=== PATIENT | female | born 1960 | race Caucasian/White ===

== ENCOUNTER 2016-06-15 21:28 | Emergency (ER) | payer MEDICAID ==
[~2016-06-15] VITALS: Ht 160 cm; Wt 79.0 kg
[~2016-06-15 21:28] MED LIST: CARB15DR48 RIGHT EAR; IBUP-1542 PO; MECL12.574 PO; MECL25TA2 PO; NPH10OT RIGHT EAR; ONDA4TAB14 PO; PARO20TA58 PO
[2016-06-15 21:36] VITALS: Ht 160 cm; Wt 79.0 kg
[2016-06-15] MEDS ORDERED: NPH10OT BOTH EARS (22:07)
[2016-06-15] MEDS ORDERED: IBUP-1542 PO (22:07)
[2016-06-15] MEDS ORDERED: AMO500 PO (22:07)
[2016-06-15] MEDS ORDERED: AMOX1TAB10 PO (22:11)
--- NOTE | 2016-06-15 22:45 | ERD ---
ER Documentation Chief Complaint Date/Time DATE: 06/15/16 TIME: 22:41 Chief Complaint bilateral earache, wallis and sore throat x3 days. HPI This is a 56-year-old female presents to the ER with a sore throat, bilateral earache, headache for the last 3 days. Patient denies any fevers or chills. She denies any discharge from her ears. She denies any hearing loss or tinnitus. She denies any dizziness, loss of consciousness. She denies nausea vomiting or diarrhea. She denies chest pain or shortness of breath. ROS 12 point review of systems was done, all negative except per HPI. Medications Home Meds Active Scripts Amoxicillin/Potassium Clav (Amox-Clav 875-125 mg Tablet) 875-125 mg Tab, 1 TAB PO BID for 7 Days, #14 TAB Prov:ERNO SOLOMON 06/15/16 Ibuprofen* (Motrin*) 600 Mg Tab, 600 MG PO Q6, #30 TAB Prov:RENO SOLOMON 06/15/16 Neomycin/Polymyxin/Hydrocort* (Cortisporin* Otic) 10 Ml Susp, 4 DROP BOTH EARS QID for 7 Days, EA Prov:RENO SOLOMON 06/15/16 Ondansetron (Ondansetron Odt) 4 Mg Tab.rapdis, 4 MG PO Q6H Y for NAUSEA AND/OR VOMITING, #30 TAB Prov:KARMA NAJERA MD 05/31/16 Meclizine Hcl* (Antivert*) 12.5 Mg Tab, 25 MG PO Q6H Y for DIZZINESS, #20 TAB Prov:KARMA NAJERA MD 05/31/16 Ibuprofen* (Motrin*) 600 Mg Tab, 600 MG PO Q6, #20 TAB Prov:ADRIANO FLOR NP 04/11/16 Carbamide Peroxide* (Debrox*) 6.5% - 15 Ml Drops, 10 DROP RIGHT EAR BID for 4 Days, BOTTLE Prov:JARED ALEXANDER NP 09/25/15 Neomycin/Polymyxin/Hydrocort* (Cortisporin* Otic) 10 Ml Susp, 4 DROP RIGHT EAR QID for 7 Days, EA Prov:JARED ALEXANDER NP 09/25/15 Ibuprofen* (Motrin*) 600 Mg Tab, 600 MG PO Q6H Y for PAIN AND OR ELEVATED TEMP, #30 TAB Prov:CATHERINEJARED X. RFID ENGINEER 09/25/15 Neomycin/Polymyxin/Hydrocort* (Cortisporin* Otic) 10 Ml Susp, 4 DROP RIGHT EAR QID for 7 Days, EA Prov:NOAHSOWMYA RFID ENGINEER 09/09/15 Meclizine Hcl* (Antivert*) 25 Mg Tablet, 25 MG PO Q6H Y for dizziness, #20 TAB Prov:KARMA NAJERA MD 08/06/15 Reported Medications Paroxetine Hcl* (Paxil*) 20 Mg Tablet, 20 MG PO DAILY, TAB 06/21/14 Allergies Allergies: Coded Allergies: No Known Allergies (Verified Allergy, Mild, 08/06/15) PMhx/Soc History of Surgery: No Anesthesia Reaction: No Hx Neurological Disorder: No Hx Respiratory Disorders: No Hx Cardiac Disorders: No Hx Psychiatric Problems: No Hx Miscellaneous Medical Probl: No Hx Alcohol Use: No Hx Substance Use: No Hx Tobacco Use: No Physical Exam Vitals Vital Signs Date Time Temp Pulse Resp B/P Pulse Ox O2 Delivery O2 Flow Rate FiO2 06/15/16 21:36 98.8 78 20 161/85 98 Physical Exam GENERAL: The patient is well-developed, well-nourished, in no acute distress. NECK: Cervical spine is non tender with no step off. Supple, no nuchal rigidity HEENT: Atraumatic. Pupils equal, round and reactive to light. Extraocular muscles are grossly intact. Conjunctivae pink, no discharge. bilateral erythematous ear canals with dc in ear canal. Tonsilar erythema with no exudates or uvular deviation. Clear rhinorrhea. RESPIRATORY: Clear to auscultation bilaterally. There are no rales, wheezes or rhonchi. HEART: Regular rate and rhythm. No murmurs, clicks, rubs or gallops. NEUROLOGIC: Alert and oriented. SKIN: There is no rash. The skin is warm and dry. Procedures/MDM Differential diagnosis includes but is not limited to; Viral URI, allergic rhinitis, bronchitis, pertussis,pneumonia. Patient does have external otitis. Clinical suspicion for pneumonia is low as patient appears well, is not hypoxic or in any respiratory distress. Additionally, patients physical examination is benign. Plan was discussed with patient they understand and agree. Patient needs to follow up with PCP in 1-2 days or return to ER sooner if symptoms worsen. Departure Diagnosis: Primary Impression: Otitis externa Condition: Stable Patient Instructions: External Ear Infection (Adult) Additional Instructions: Llame al doctor MAANA y jesi rolando PARK PARA DENTRO DE 1-2 COTTON.Dgale a la secretaria que nosotros le instruimos hacer esta park.Avise o llame si daniel condicin se empeora antes de la park. Regresa aqui si peor o no mejor. RENO SOLOMON Jun 15, 2016 22:44
== END 2016-06-15 22:08 | disposition home or self-care (01) ==
LOC: E/R 21:28
DX: H60.93 Unspecified otitis externa, bilateral (principal)
CPT/HCPCS: 99283

== ENCOUNTER 2016-12-09 06:17 | Emergency (ER) | payer SELFPAY ==
[~2016-12-09] VITALS: Ht 157.5 cm; Wt 74.5 kg
[~2016-12-09 06:17] MED LIST changes: +AMOX1TAB10 PO; +NPH10OT BOTH EARS
[2016-12-09 06:21] VITALS: Ht 157.5 cm; Wt 74.5 kg
[2016-12-09] MEDS ORDERED: KETOROLAC 30 MG INJ IM STA (06:49)
[2016-12-09 07:00] LABS: URINE BLOOD (Dip) POC Trace-intact (NEGATIVE)
--- NOTE | 2016-12-09 07:14 | ERD ---
ER Documentation Chief Complaint Date/Time DATE: 12/09/16 TIME: 07:12 Chief Complaint lower back pain; numbness on right leg x 8 days HPI This is a 56-year-old female who presents to the emergency department today complaining of right-sided back pain and numbness into her right leg. Denies any trauma, denies any fevers or chills or dysuria. ROS All systems reviewed and are negative except as per history of present illness. Medications Home Meds Active Scripts Naproxen* (Naprosyn*) 500 Mg Tablet, 500 MG PO BID Y for PAIN AND/OR INFLAMMATION, #30 TAB Prov:NESSA ARZATE PA-C 12/09/16 Tramadol HCl (Tramadol HCl) 50 Mg Tablet, 50 MG PO Q4 Y for PAIN, #20 TAB Prov:NESSA ARZATE PA-C 12/09/16 Amoxicillin/Potassium Clav (Amox-Clav 875-125 mg Tablet) 875-125 mg Tab, 1 TAB PO BID for 7 Days, #14 TAB Prov:RENO SOLOMON 06/15/16 Ibuprofen* (Motrin*) 600 Mg Tab, 600 MG PO Q6, #30 TAB Prov:RENO SOLOMON 06/15/16 Neomycin/Polymyxin/Hydrocort* (Cortisporin* Otic) 10 Ml Susp, 4 DROP BOTH EARS QID for 7 Days, EA Prov:RENO SOLOMON 06/15/16 Ondansetron (Ondansetron Odt) 4 Mg Tab.rapdis, 4 MG PO Q6H Y for NAUSEA AND/OR VOMITING, #30 TAB Prov:KARMA NAJERA MD 05/31/16 Meclizine Hcl* (Antivert*) 12.5 Mg Tab, 25 MG PO Q6H Y for DIZZINESS, #20 TAB Prov:KARMA NAJERA MD 05/31/16 Ibuprofen* (Motrin*) 600 Mg Tab, 600 MG PO Q6, #20 TAB Prov:ADRIANO FLOR NP 04/11/16 Carbamide Peroxide* (Debrox*) 6.5% - 15 Ml Drops, 10 DROP RIGHT EAR BID for 4 Days, BOTTLE Prov:JARED ALEXANDER NP 09/25/15 Neomycin/Polymyxin/Hydrocort* (Cortisporin* Otic) 10 Ml Susp, 4 DROP RIGHT EAR QID for 7 Days, EA Prov:CATHERINEJARED X. HOUSING COORDINATOR 09/25/15 Ibuprofen* (Motrin*) 600 Mg Tab, 600 MG PO Q6H Y for PAIN AND OR ELEVATED TEMP, #30 TAB Prov:JARED ALEXANDER Tavon. HOUSING COORDINATOR 09/25/15 Neomycin/Polymyxin/Hydrocort* (Cortisporin* Otic) 10 Ml Susp, 4 DROP RIGHT EAR QID for 7 Days, EA Prov:SOWMYA ZAMORA HOUSING COORDINATOR 09/09/15 Meclizine Hcl* (Antivert*) 25 Mg Tablet, 25 MG PO Q6H Y for dizziness, #20 TAB Prov:KARMA NAJERA MD 08/06/15 Reported Medications Paroxetine Hcl* (Paxil*) 20 Mg Tablet, 20 MG PO DAILY, TAB 06/21/14 Allergies Allergies: Coded Allergies: No Known Allergies (Verified Allergy, Mild, 08/06/15) PMhx/Soc History of Surgery: No Anesthesia Reaction: No Hx Neurological Disorder: No Hx Respiratory Disorders: No Hx Cardiac Disorders: No Hx Psychiatric Problems: No Hx Miscellaneous Medical Probl: No Hx Alcohol Use: No Hx Substance Use: No Hx Tobacco Use: No Smoking Status: Never smoker Physical Exam Vitals Vital Signs Date Time Temp Pulse Resp B/P Pulse Ox O2 Delivery O2 Flow Rate FiO2 12/09/16 06:21 98.5 86 20 134/75 99 Physical Exam Const: No acute distress Head: Atraumatic Eyes: Normal Conjunctiva ENT: Normal External Ears, Nose and Mouth. Neck: Full range of motion..~ No meningismus. Resp: Clear to auscultation bilaterally Cardio: Regular rate and rhythm, no murmurs Skin: No petechiae or rashes Back: Mild midline tenderness with right-sided paraspinal tenderness. Full active range of motion. Pulses 2+. Distal neurovascularly intact. Negative straight leg raise. Strength 5 out of 5. Ext: No cyanosis, or edema Neur: Awake and alert Psych: Normal Mood and Affect Results 24 hrs Laboratory Tests Test 12/09/16 07:04 Bedside Urine pH (LAB) 5.5 Bedside Urine Protein (LAB) Trace Bedside Urine Glucose (UA) 0.50% Bedside Urine Ketones (LAB) Trace Bedside Urine Blood Trace-intact Bedside Urine Nitrite (LAB) Negative Bedside Urine Leukocyte Esterase (L Negative Current Medications Medications (Trade) Dose Ordered Sig/Eli Route PRN Reason Start Time Stop Time Status Last Admin Dose Admin Ketorolac Tromethamine (Toradol) 30 mg ONCE STAT IM 12/09/16 06:49 12/09/16 06:51 DC 12/09/16 07:04 DIAGNOSTIC IMAGING REPORT Patient: THANIA ROBBINS : 1960 Age: 56 Sex: F MR #: [id number] DOS: 12/09/16 0000 Ordering MD: NESSA ARZATE PA-C Location: [facility] Room/Bed: PROCEDURE: XR Lumbar Spine. CLINICAL INDICATION: Low back pain with radicular symptoms. TECHNIQUE: Three views of the lumbar spine are available for review COMPARISON: None available FINDINGS: There is no acute fracture or static subluxation. There is moderate degenerative spondylosis at L5-S1 with intervertebral disk height loss and disk osteophyte formation. There is otherwise preserved intervertebral disk height. The normal lumbar lordosis is preserved and the alignment is normal. The posterior elements are normal in appearance. IMPRESSION: 1. Negative for acute fracture static subluxation. 2. moderate degenerative spondylosis at L5-S1. RPTAT: GG .Luiz Gerber MD, MD Date Time Electronically viewed and signed by .Luiz Gerber MD, MD on 12/09/2016 08:27 .P/ CC: NESSA ARZATE PA-C Procedures/MDM This is a 56-year-old female who presents to the emergency department today complaining of back pain for the past 8 days and right-sided paresthesia. Given this I did elect to obtain images as well as a UA. UA is negative for infection. Per the radiology report images of the lumbar spine show no acute fracture or dislocation. There is moderate degenerative spondylosis at L5 and S1 This is likely the source of the patient's pain. Low suspicion for acute fracture or dislocation. Patient is afebrile and otherwise well-appearing. They have no loss of bowel or bladder control. Low suspicion for cauda equina or abscess. Patient was given Toradol here in the emergency department and pain improved. Patient will be given a prescription for short course of tramadol, Naprosyn. At this time the patient is stable for discharge and outpatient management. Patient should follow up with their PCP in the next 1-2 days. They may return to the emergency department sooner for any persistent or worsening of symptoms. Patient understood and agreed with the plan. Departure Diagnosis: Primary Impression: Back pain Back pain location: low back pain Chronicity: acute Back pain laterality: right Sciatica presence: unspecified whether sciatica present Qualified Code : M54.5 - Acute right-sided low back pain, with sciatica presence unspecified Condition: Fair NESSA ARZATE PA-C Dec 09, 2016 07:14
--- NOTE | 2016-12-09 08:27 | RADRPT ---
PROCEDURE: XR Lumbar Spine. CLINICAL INDICATION: Low back pain with radicular symptoms. TECHNIQUE: Three views of the lumbar spine are available for review COMPARISON: None available FINDINGS: There is no acute fracture or static subluxation. There is moderate degenerative spondylosis at L5-S 1 with intervertebral disk height loss and disk osteophyte formation. There is otherwise preserved intervertebral disk height. The normal lumbar lordosis is preserved and the alignment is normal. The posterior elements are normal in appearance. IMPRESSION: 1. Negative for acute fracture static subluxation. 2. moderate degenerative spondylosis at L5-S1. RPTAT: GG .Luiz Gerber MD, Date Time Electronically viewed and signed by .Luiz Gerber MD, MD on 12/09/2016 08:27 .P/
[2016-12-09] MEDS ORDERED: TRAM50TA2 PO (08:32)
[2016-12-09] MEDS ORDERED: NAPR-260 PO (08:32)
== END 2016-12-09 09:21 | disposition home or self-care (01) ==
LOC: FTE 06:17
DX: M54.5 Low back pain (principal)
CPT/HCPCS: 72100; 81003; J1885; 96372

== ENCOUNTER 2019-01-24 11:49 | Emergency (ER) | payer MEDICAID ==
[~2019-01-24] VITALS: Ht 160 cm; Wt 74.0 kg
[~2019-01-24 11:49] MED LIST changes: -CARB15DR48 RIGHT EAR; +CARB15DR50 RIGHT EAR; +LORA-441 PO; +METF-849 PO; +NAPR-985 PO; +PARO-2 PO; -PARO20TA58 PO; +PARO30TA48 PO; +PARO40TA63 PO; +TRAM50TA2 PO
[2019-01-24 11:58] VITALS: Ht 160 cm; Wt 74.0 kg
[2019-01-24] MEDS ORDERED: LACTATED RINGER'S 1,000 ML IV STA (11:58)
[2019-01-24] MEDS ORDERED: SOD CHLORIDE 0.9% 1,000 ML IV STA (11:58)
[2019-01-24] MEDS ORDERED: FAMOTIDINE 20 MG TAB PO ONE (12:30)
[2019-01-24] MEDS ORDERED: KETOROLAC 30 MG INJ IV STA (13:24)
--- NOTE | 2019-01-24 13:46 | ERD ---
ER Documentation Chief Complaint Chief Complaint pt is bib RA from clinic with c/o elevated BS and pain all over HPI 59-year-old female brought in by ambulance from clinic due to elevated blood sugar and several months of generalized abdominal pain, back pain, and bilateral leg pain. Patient states the pain is aching, constant, with no alleviating or exacerbating factors. She has been off of diabetes medications for quite some time. She was noted to be hyperglycemic today with ketones in her urine, so she was sent for evaluation. She has no new pain or complaints otherwise. ROS All systems reviewed and are negative except as per history of present illness. Medications Home Meds Active Scripts Metformin* (Glucophage*) 500 Mg Tab, 500 MG PO BID, #60 TAB Prov:JEM KEY MD 01/24/19 Reported Medications Paroxetine Hcl* (Paxil*) 20 Mg Tablet, 40 MG PO HS, TAB 01/24/19 Discontinued Reported Medications Paroxetine Hcl* (Paxil*) 20 Mg Tablet, 20 MG PO DAILY, TAB 06/21/14 Discontinued Scripts Naproxen* (Naprosyn*) 500 Mg Tablet, 500 MG PO BID PRN for PAIN AND/OR INFLAMMATION, #30 TAB Prov:NESSA ARZATEC 12/09/16 Tramadol HCl (Tramadol HCl) 50 Mg Tablet, 50 MG PO Q4 PRN for PAIN, #20 TAB Prov:NESSA ARZATE-C 12/09/16 Amoxicillin/Potassium Clav (Amox-Clav 875-125 mg Tablet) 875-125 mg Tab, 1 TAB PO BID for 7 Days, #14 TAB Prov:RENO SOLOMON 06/15/16 Ibuprofen* (Motrin*) 600 Mg Tab, 600 MG PO Q6, #30 TAB Prov:RENO SOLOMON 06/15/16 Neomycin/Polymyxin/Hydrocort* (Cortisporin* Otic) 10 Ml Susp, 4 DROP BOTH EARS QID for 7 Days, EA Prov:RENO SOLOMON 06/15/16 Ondansetron (Ondansetron Odt) 4 Mg Tab.rapdis, 4 MG PO Q6H PRN for NAUSEA AND/OR VOMITING, #30 TAB Prov:KARMA NAJERA MD 05/31/16 Meclizine Hcl* (Antivert*) 12.5 Mg Tab, 25 MG PO Q6H PRN for DIZZINESS, #20 TAB Prov:KARMA NAJERA MD 05/31/16 Ibuprofen* (Motrin*) 600 Mg Tab, 600 MG PO Q6, #20 TAB Prov:BASIAADRIANO AjAlida CONSTRUCTION SPECIALIST 04/11/16 Carbamide Peroxide* (Debrox*) 6.5% - 15 Ml Drops, 10 DROP RIGHT EAR BID for 4 Days, BOTTLE Prov:JARED ALEXNADER CONSTRUCTION SPECIALIST 09/25/15 Neomycin/Polymyxin/Hydrocort* (Cortisporin* Otic) 10 Ml Susp, 4 DROP RIGHT EAR QID for 7 Days, EA Prov:JARED ALEXANDER CONSTRUCTION SPECIALIST 09/25/15 Ibuprofen* (Motrin*) 600 Mg Tab, 600 MG PO Q6H PRN for PAIN AND OR ELEVATED TEMP, #30 TAB Prov:JARED ALEXANDER CONSTRUCTION SPECIALIST 09/25/15 Neomycin/Polymyxin/Hydrocort* (Cortisporin* Otic) 10 Ml Susp, 4 DROP RIGHT EAR QID for 7 Days, EA Prov:SOWMYA ZAMORA CONSTRUCTION SPECIALIST 09/09/15 Meclizine Hcl* (Antivert*) 25 Mg Tablet, 25 MG PO Q6H PRN for dizziness, #20 TAB Prov:KARMA NAJERA MD 08/06/15 Allergies Allergies: Coded Allergies: No Known Allergies (Verified Allergy, Mild, 01/24/19) PMhx/Soc Medical and Surgical Hx: pt denies Surgical Hx History of Surgery: No Anesthesia Reaction: No Hx Neurological Disorder: No Hx Respiratory Disorders: No Hx Cardiac Disorders: No Hx Psychiatric Problems: No Hx Miscellaneous Medical Probl: Yes (Diabetes, untreated) Hx Alcohol Use: No Hx Substance Use: No Hx Tobacco Use: No Smoking Status: Never smoker FmHx Mother had history of GI cancer Physical Exam Vitals Vital Signs Date Temp Pulse Resp B/P (MAP) Pulse Ox O2 O2 Flow FiO2 Time Delivery Rate 01/24/19 98.7 72 16 121/74 98 Room Air 15:05 (90) 01/24/19 85 16 129/73 Room Air 13:35 (91) 01/24/19 98.1 78 16 142/94 98 11:58 (110) Physical Exam Const: No acute distress Head: Atraumatic Eyes: Normal Conjunctiva ENT: Normal External Ears, Nose and Mouth. Neck: Full range of motion. No meningismus. Resp: Clear to auscultation bilaterally Cardio: Regular rate and rhythm, no murmurs Abd: Soft, non tender, non distended. Normal bowel sounds Skin: No petechiae or rashes Back: No midline or flank tenderness Ext: No cyanosis, or edema Neur: Awake and alert, oriented x3, cranial nerves intact, strength and sensations intact in all 4 extremities. Psych: Normal Mood and Affect Result Diagram: 01/24/19 1225 01/24/19 1225 Results 24 hrs Laboratory Tests Test 01/24/19 12:11 01/24/19 12:25 01/24/19 13:28 Bedside Glucose 274 mg/dL White Blood Count 7.2 10^3/ul Red Blood Count 4.21 10^6/ul Hemoglobin 13.2 g/dl Hematocrit 38.8 % Mean Corpuscular Volume 92.2 fl Mean Corpuscular Hemoglobin 31.4 pg Mean Corpuscular 34.0 g/dl Hemoglobin Concent Red Cell Distribution Width 12.2 % Platelet Count 308 10^3/UL Mean Platelet Volume 10.8 fl Immature Granulocytes % 0.300 % Neutrophils % 58.1 % Lymphocytes % 34.0 % Monocytes % 6.6 % Eosinophils % 0.3 % Basophils % 0.7 % Nucleated Red Blood Cells % 0.0 /100WBC Immature Granulocytes # 0.020 10^3/ul Neutrophils # 4.2 10^3/ul Lymphocytes # 2.4 10^3/ul Monocytes # 0.5 10^3/ul Eosinophils # 0.0 10^3/ul Basophils # 0.1 10^3/ul Nucleated Red Blood Cells # 0.0 10^3/ul Sodium Level 136 mmol/L Potassium Level 4.1 mmol/L Chloride Level 100 mmol/L Carbon Dioxide Level 26 mmol/L Anion Gap 10 Blood Urea Nitrogen 12 mg/dl Creatinine 0.41 mg/dl Est Glomerular Filtrat > 60 mL/min Rate mL/min Glucose Level 288 mg/dl Calcium Level 8.9 mg/dl Total Bilirubin 0.7 mg/dl Direct Bilirubin 0.00 mg/dl Indirect Bilirubin 0.7 mg/dl Aspartate Amino 28 IU/L Transf (AST/SGOT) Alanine 40 IU/L Aminotransferase (ALT/SGPT) Alkaline Phosphatase 149 IU/L Total Protein 8.0 g/dl Albumin 4.5 g/dl Lipase 57 U/L Urine Color YELLOW Urine Clarity CLEAR Urine pH 6.0 Urine Specific [place] 1.038 Urine Ketones 1+ mg/dL Urine Nitrite NEGATIVE mg/dL Urine Bilirubin NEGATIVE mg/dL Urine Urobilinogen NEGATIVE mg/dL Urine Leukocyte Esterase NEGATIVE Riana/ul Urine Microscopic RBC 1 /HPF Urine Microscopic WBC 1 /HPF Urine Squamous Epithelial Cells FEW /HPF Urine Hemoglobin NEGATIVE mg/dL Urine Glucose 3+ mg/dL Urine Total Protein 1+ mg/dl Urine Test NEGATIVE Current Medications Medications Dose Sig/Eli Start Time Status Last (Trade) Ordered Route PRN Stop Time Admin Dose Reason Admin Sodium 1,000 ml @ Q1H STAT 01/24/19 DC 01/24/19 Chloride 1,000 mls/hr IV 11:58 12:25 01/24/19 12:57 Lactated 1,000 ml @ Q1H STAT 01/24/19 DC 01/24/19 Ringer's 1,000 mls/hr IV 11:58 12:37 01/24/19 12:57 Famotidine 20 mg ONCE ONCE 01/24/19 DC 01/24/19 (Pepcid) PO 12:30 12:37 01/24/19 12:31 Ketorolac 30 mg ONCE STAT 01/24/19 DC 01/24/19 Tromethamine IV 13:24 13:32 (Toradol) 01/24/19 13:25 Procedures/MDM EMERGENT LABS AND DIAGNOSTIC STUDIES: Lab Results above were reviewed and interpreted by me. CBC: no anemia or evidence of infection CMP: Hyperglycemic without evidence of acidosis. No evidence of clinically significant electrolyte abnormality, acidosis, renal failure, hypoglycemia, liver disease, or biliary obstruction Lipase: no evidence of pancreatitis UA: no evidence of infection. 1+ ketones noted Initial Nursing notes reviewed. Previous Medical Records requested via the Electronic Health Record. EMERGENCY DEPARTMENT COURSE / MEDICAL DECISION MAKING: Patient is presenting with hyperglycemia and total body pain that is chronic. She is hemodynamically stable. Blood sugar was elevated but there is no ev idence of diabetic ketoacidosis. She was treated with IV fluids with improvement of her symptoms. Follow-up with PCP was recommended for colonoscopy and endoscopy given her chronic abdominal pain. However at this point, there is no evidence of acute surgical abdomen. She is neurovascularly intact on exam. Patient feels comfortable with discharge plan. Strict return precautions given. Prescription for metformin for 1 month given. Patient's blood pressure was elevated (>120/80) but appears stable without evidence of hypertensive emergency or urgency. The patient was counseled about the risks of hypertension and urged to pursue outpatient monitoring and therapy within a week with their primary care physician. Departure Diagnosis: Primary Impression: Diabetes mellitus Diabetes mellitus type: type 2 Diabetes mellitus shelter insulin use: without buttermaker helper use Diabetes mellitus complication status: without complication Qualified Codes: E11.9 - Type 2 diabetes mellitus without complications Additional Impression: Chronic abdominal pain Condition: Stable Patient Instructions: Hyperglycemia (High Blood Sugar), Epigastric Pain (Uncertain Cause) Referrals: [facility] Usted se wallis hecho un examen mdico de control que le indica que no est en rolando condicin que requiera tratamiento urgente en el Departamento de Emergencia. Un estudio ms profundo y el tratamiento de daniel condicin pueden esperar sin ningn riesgo hasta que usted sea atendida/o en el consultorio de daniel mdico o rolando clnica. Es responsabilidad suya arreglar rolando park para el seguimiento del olivia. MANEJO DE CONDICIONES NO URGENTES EN EL FUTURO 1) Si usted tiene un mdico de atencin primaria: Usted debera llamar a daniel mdico de atencin primaria antes de venir al departamento de emergencia. Despus de las horas de consultorio, daniel doctor o daniel asociado/a est disponible por telfono. El mdico o enfermero de torsten en el servicio telefnico puede asesorarle por dewayne medio para atender el problema, o olivia contrario se puede programar rolando park. 2) Si usted no tiene un mdico de atencin primaria: Llame al mdico o clnica de referencia que aparece abajo yanelis las horas de consultorio para hacer rolando park para que le vean. CLINICAS: [facility] [phone] [facility] [place] [phone] [facility] [phone] [place] [address] [phone] [place] [address] [phone] [facility] [phone] [address] [facility]. [facility] () Usted se wallis hecho un examen mdico de control que le indica que no est en rolando condicin que requiera tratamiento urgente en el Departamento de Emergencia. Un estudio ms profundo y el tratamiento de daniel condicin pueden esperar sin ningn riesgo hasta que usted sea atendida/o en el consultorio de daniel mdico o rolando clnica. Es responsabilidad suya arreglar rolando park para el seguimiento del olivia. MANEJO DE CONDICIONES NO URGENTES EN EL FUTURO 1) Si usted tiene un mdico de atencin primaria: Usted debera llamar a daniel mdico de atencin primaria antes de venir al departamento de emergencia. Despus de las horas de consultorio, daniel doctor o daniel asociado/a est disponible por telfono. El mdico o enfermero de torsten en el servicio telefnico puede asesorarle por dewanye medio para atender el problema, o olivia contrario se puede programar rolando park. 2) Si usted no tiene un mdico de atencin primaria: Llame al mdico o condado institucions de referencia que aparece abajo yanelis las horas de consultorio para hacer rolando park para que le vean. SI USTED NO PUEDE PAGAR PARA JUMANA UN MEDICO puede ir a: [facility] [address] [place] [address] [facility] [address] [place] [address] [facility] [address] [place] [address] [facility] [address] [place], [place] [id number] Additional Instructions: Llame al doctor MAANA y jesi rolando PARK PARA DENTRO DE 2-3 COTTON.Dgale a la secretaria que nosotros le instruimos hacer esta park.Avise o llame si daniel condi sharron se empeora antes de la park. Regresa aqui si peor o no mejor. JEM KEY MD Jan 24, 2019 13:46
[2019-01-24 15:05] VITALS: BP 121/74; PULSE 72; RESP 16
== END 2019-01-24 15:06 | disposition home or self-care (01) ==
LOC: E/R 11:49
DX: E11.9 Type 2 diabetes mellitus without complications (principal); G89.29 Other chronic pain; Z79.84 Long term (current) use of oral hypoglycemic drugs
CPT/HCPCS: 36415; 80048; 80076; 81001; 82962; 83690; 84703; 85025; 96374; J1885; J7030; J7120; Z7502; Z7610

== ENCOUNTER 2019-01-28 04:20 | Emergency (ER) | payer MEDICAID ==
[~2019-01-28] VITALS: Ht 160 cm; Wt 60.0 kg
[~2019-01-28 04:20] MED LIST changes: -AMOX1TAB10 PO; -CARB15DR50 RIGHT EAR; +FAMO-96 PO; -IBUP-1542 PO; -MECL12.574 PO; -MECL25TA2 PO; +MULTI PO; -NAPR-985 PO; +NAPR220C2 PO; -NPH10OT BOTH EARS; -NPH10OT RIGHT EAR; +OMEG-135 PO; -ONDA4TAB14 PO; +SIME80TA60 PO; -TRAM50TA2 PO
[2019-01-28 04:21] VITALS: Ht 160 cm; Wt 60.0 kg
[2019-01-28] MEDS ORDERED: LORAZEPAM 2 MG INJ IV ONE (05:30)
[2019-01-28] MEDS ORDERED: SOD CHLORIDE 0.9% 1,000 ML IV ONE (06:00)
[2019-01-28 09:29] VITALS: BP 128/65; PULSE 76; RESP 20
== END 2019-01-28 10:26 | disposition home or self-care (01) ==
LOC: E/R 04:20
DX: F41.9 Anxiety disorder, unspecified (principal); E11.9 Type 2 diabetes mellitus without complications; R53.81 Other malaise; Z79.84 Long term (current) use of oral hypoglycemic drugs
CPT/HCPCS: 70450; 71045; 80053; 82962; 83880; 84484; 85025; 85610; 93005; J2060; J7030; 36415; 96374

== ENCOUNTER 2019-04-16 23:52 | Emergency (ER) | payer MEDICAID ==
[~2019-04-16] VITALS: Ht 154.9 cm; Wt 72.7 kg
[2019-04-16 23:55] VITALS: Ht 154.9 cm; Wt 72.7 kg
[2019-04-17] MEDS ORDERED: SOD CHLORIDE 0.9% 1,000 ML IV STA (00:12)
[2019-04-17] MEDS ORDERED: ONDANSETRON 4 MG INJ IV STA (00:12)
[2019-04-17] MEDS ORDERED: LIDOCAINE 2% VISC 10 ML CUP PO ONE (00:30)
[2019-04-17] MEDS ORDERED: AL HYDROX/MG HYDROX/SIMETH 30 ML CUP PO ONE (00:30)
[2019-04-17] MEDS ORDERED: IOHEXOL 300MG/ML 150 ML BTL ONE (01:15)
[2019-04-17] MEDS ORDERED: SOD CHLORIDE 0.9% 100 ML ONE (01:15)
[2019-04-17] MEDS ORDERED: ACETAMINOPHEN 500 MG TAB PO STA (03:17)
[2019-04-17 04:02] VITALS: BP 124/72; PULSE 82; RESP 16
== END 2019-04-17 04:02 | disposition home or self-care (01) ==
LOC: E/R 23:52
DX: R10.84 Generalized abdominal pain (principal); E11.9 Type 2 diabetes mellitus without complications; I10 Essential (primary) hypertension; R11.0 Nausea; Z79.84 Long term (current) use of oral hypoglycemic drugs
CPT/HCPCS: 36415; 74177; 80053; 81001; 83690; 85025; 96374; J2405; J7030; Q9967; Z7502; Z7610